=== PATIENT | male | born 1995 | race African-American/Black ===

== ENCOUNTER 2019-06-19 11:30 | Emergency (ER) | payer SELFPAY ==
[~2019-06-19] VITALS: Ht 180.3 cm; Wt 80.0 kg
[2019-06-19 12:17] VITALS: BP 130/73
[2019-06-19] MEDS ORDERED: DOCUSATE 100 MG/10 ML SOLUTION. AU ONE (12:45)
--- NOTE | 2019-06-19 13:08 | PHYS DOC ---
Past Medical History Past Medical History: Schizophrenia (GALEMIRIAM APRN) Past Surgical History: No Surgical History (GALEMIRIAM APRN) Smoking Status: Never Smoker Alcohol Use: None (MIRIAM BEASLEY DEBORA) Adult General Chief Complaint Chief Complaint: EARACHE/EAR PAIN HPI HPI Patient is a 24 year old male with history of schizophrenia presenting to the ED today complaining of right ear pain, symptoms began one month ago, patient rates the pain as 4 out of 10, described as sensation of fullness, denies any fever coughing or congestion. Reports he uses CBD. (MIRIAM BEASLEY DEBORA) Review of Systems Review of Systems Constitutional: Denies fever or chills [] HENT: Reports right ear pain. Denies nasal congestion or sore throat [] Respiratory: Denies cough or shortness of breath [] Cardiovascular: No additional information not addressed in HPI [] : Denies dysuria or hematuria [] Musculoskeletal: Denies back pain or joint pain [] Integument: Denies rash or skin lesions [] Neurologic: Denies headache, focal weakness or sensory changes [] All other systems were reviewed and found to be within normal limits, except as documented in this note. (GALEMIRIAM APRN) Current Medications Current Medications Current Medications Medications (Trade) Dose Ordered Sig/Dex Start Time Stop Time Status Last Admin Dose Admin Docusate Sodium (Colace Solution) 100 mg 1X ONCE 06/19/19 12:45 06/19/19 12:46 DC 06/19/19 12:45 100 MG (LEXIE VARELA DO) Allergies Allergies Allergies Coded Allergies Type Severity Reaction Last Updated Verified No Known Drug Allergies 06/19/19 No (LEXIE VARELA DO) Physical Exam Physical Exam Constitutional: Well developed, well nourished, no acute distress, non-toxic appearance. [] HENT: Normocephalic, atraumatic, bilateral external ears normal, oropharynx moist, no oral exudates, nose normal. [] Bilateral ear canals are impacted with cerumen, TM cannot be visualized. Eyes: PERRLA, EOMI, conjunctiva normal, no discharge. [] Neck: Normal range of motion, no tenderness, supple, no stridor. [] Cardiovascular:Heart rate regular rhythm, no murmur [] Lungs & Thorax: Bilateral breath sounds clear to auscultation [] Skin: Warm, dry, no erythema, no rash. [] Back: No tenderness, no CVA tenderness. [] Extremities: No tenderness, no cyanosis, no clubbing, ROM intact, no edema. [] Neurologic: Alert and oriented X 3, normal motor function, normal sensory function, no focal deficits noted. [] Psychologic: flat affect (MIRIAM BEASLEY APRN) Current Patient Data Vital Signs Vital Signs Date Time Temp Pulse Resp B/P (MAP) Pulse Ox O2 Delivery O2 Flow Rate FiO2 06/19/19 12:17 98.5 64 16 130/73 (92) 98 Room Air 98.5 (LEXIE VARELA DO) EKG EKG [] (MIRIAM BEASLEY APRN) Radiology/Procedures Radiology/Procedures [] (MIRIAM BEASLEY APRN) Course & Med Decision Making Course & Med Decision Making Pertinent Labs and Imaging studies reviewed. (See chart for details) This is a 24-year-old male patient with bilateral cerumen impaction. Patient opted to have cerumen removed at home, recommended Colace. F/u with ENT in 1-2 weeks (MIRIAM BEASLEY APRN) Dragon Disclaimer Dragon Disclaimer This electronic medical record was generated, in whole or in part, using a voice recognition dictation system. (MIRIAM BEASLEY APRN) Departure Departure Impression: Primary Impression: Cerumen impaction Disposition: 01 HOME, SELF-CARE Condition: STABLE Referrals: NO PCP (PCP) ANN LAU MD follow up in 1-2 weeks Patient Instructions: Cerumen Impaction Additional Instructions: Please put colace in the right ear while laying on the left side. Let it sit for 15 minutes then rinse with warm shower water. Repeat on the opposite ear. Follow up with ENT in 1 week Attending Signature Attending Signature I have reviewed the PA/PRICING/SIGNAGE TEAM MEMBER's note and plan of care. I was available for consultation as needed during the patient's visit in the emergency department. I agree with the clinical impression, plan, and disposition. (LEXIE VARELA DO) Problem Qualifiers Primary Impression: Cerumen impaction Laterality: bilateral Qualified Codes: H61.23 - Impacted cerumen, bilateral MIRIAM BEASLEY APRN Jun 19, 2019 13:08 LEXIE VARELA DO Jun 19, 2019 15:33
== END 2019-06-19 13:20 | disposition home or self-care (01) ==
LOC: ER 11:30
DX: H61.21 Impacted cerumen, right ear (principal); F20.9 Schizophrenia, unspecified
CPT/HCPCS: 99282

== ENCOUNTER 2020-07-24 11:47 | Emergency (ER) | payer BC ==
[~2020-07-24] VITALS: Ht 180.3 cm; Wt 81.0 kg
[2020-07-24 12:47] VITALS: BP 129/70
[2020-07-24 13:11] LABS: BILIRUBIN,URINE NEGATIVE (NEG); CLARITY,URINE CLEAR; COLOR,URINE YELLOW; NITRITE,URINE NEGATIVE (NEG); PH,URINE 8.5 (<5.0-8.0); PROTEIN,URINE NEGATIVE (NEG-TRACE)
--- NOTE | 2020-07-24 13:15 | ED.ADGEN ---
Past Medical History Past Medical History: Schizophrenia Past Surgical History: No Surgical History Smoking Status: Never Smoker Alcohol Use: None General Adult EDM: Chief Complaint: SEXUALLY TRANSMITTED DISEASE HPI: HPI: Patient is a 25 year old AA male who presents emergency department with request to be tested for sexually transmitted infections. Patient reports that his significant other was recently diagnosed with bacterial vaginosis. He denies any irregular penile discharge, dysuria, hematuria, increased urinary frequency, or difficulty voiding. Patient denies any abdominal pain, nausea, vomiting, diarrhea, fever, rash, body aches, or fatigue. Patient currently denies any pain. Review of Systems: Review of Systems: Complete ROS is negative unless otherwise noted in HPI. Allergies: Allergies: Allergies Coded Allergies Type Severity Reaction Last Updated Verified No Known Drug Allergies 06/19/19 No Physical Exam: PE: See Above Constitutional: Well developed, well nourished, no acute distress, non-toxic appearance. [] HENT: Normocephalic, atraumatic, bilateral external ears normal, nose normal. [] Eyes: PERRLA, EOMI, conjunctiva normal, no discharge. [] Neck: Normal range of motion, no stridor. [] Cardiovascular:Heart rate regular rhythm Lungs & Thorax: Respirations even and unlabored, no retractions, no respiratory distress Abdomen: soft, no tenderness Skin: Warm, dry, no erythema, no rash. [] Extremities: No cyanosis, ROM intact, no edema. [] Neurologic: Alert and oriented X 3, no focal deficits noted. [] Psychologic: Affect normal, judgement normal, mood normal. [] Current Patient Data: Labs: Laboratory Tests Test 07/24/20 12:50 Urine Collection Type Unknown Urine Color Yellow Urine Clarity Clear Urine pH 8.5 (<5.0-8.0) Urine Specific [place] 1.020 (1.000-1.030) Urine Protein Negative mg/dL (NEG-TRACE) Urine Glucose (UA) Negative mg/dL (NEG) Urine Ketones (Stick) Negative mg/dL (NEG) Urine Blood Negative (NEG) Urine Nitrite Negative (NEG) Urine Bilirubin Negative (NEG) Urine Urobilinogen Dipstick 1.0 mg/dL (0.2 mg/dL) Urine Leukocyte Esterase Negative (NEG) Urine RBC Rare /HPF (0-2) Urine WBC Occ /HPF (0-4) Urine Squamous Epithelial Cells Few /LPF Urine Bacteria 0 /HPF (0-FEW) Urine Mucus Slight /LPF EKG: EKG: [] Heart Score: C/O Chest Pain: No Risk Factors: Risk Factors: DM, Current or recent (<one month) smoker, HTN, HLP, family history of CAD, obesity. Risk Scores: Score 0 - 3: 2.5% MACE over next 6 weeks - Discharge Home Score 4 - 6: 20.3% MACE over next 6 weeks - Admit for Clinical Observation Score 7 - 10: 72.7% MACE over next 6 weeks - Early Invasive Strategies Radiology/Procedures: Radiology/Procedures: [] Course & Med Decision Making: Course & Med Decision Making Pertinent Labs and Imaging studies reviewed. (See chart for details) 25-year-old male presents emergency department with concerns of a possible sexually transmitted infection because his girlfriend was diagnosed with bacterial vaginosis. Patient denied any irregular penile discharge, dysuria, hematuria, or increased urinary frequency. His urinalysis was unremarkable, there is no bacteria in his urine. I advised the patient of his urinalysis results and recommend that he needs to follow-up with his primary care doctor for further evaluation. Return to the ER if symptoms worsen or fever develops. Patient verbalized an understanding of home care, medications, follow-up, and return to ED instructions and was in agreement with the plan of care. [] Dragon Disclaimer: Dragon Disclaimer: This electronic medical record was generated, in whole or in part, using a voice recognition dictation system. Departure Departure Impression: Primary Impression: Person with feared complaint in whom no diagnosis is made Disposition: 01 DC HOME SELF CARE/HOMELESS Condition: STABLE Referrals: NO PCP (PCP) Patient Instructions: Medical Screening Exam Additional Instructions: Follow-up with your primary care doctor for further evaluation and treatment of your health needs. Return to the ER if your symptoms worsen or fever develops. [facility] [address] [place] [address] [facility] [address] [place] [address] [place] [address] [facility] [address] [address] [facility] [address] [place] [address] [facility] [address] [place] [address] [address] [address] [place] [address] [facility] [address] [place] [address] [facility] [address] [place] [address] [facility] [address] [place] [address] BEHZAD KIRK APRN Jul 24, 2020 13:15
[2020-07-24 13:19] LABS: RBC,URINE RARE /HPF (0-2); WBC,URINE OCC /HPF (0-4)
[2020-07-24 13:20] LABS: BACTERIA,URINE 0 /HPF (0-FEW)
== END 2020-07-24 13:30 | disposition home or self-care (01) ==
LOC: ER 11:47
DX: A64 Unspecified sexually transmitted disease (principal); F20.9 Schizophrenia, unspecified
CPT/HCPCS: 81001; 87491; 87591; 99283

== ENCOUNTER 2021-04-04 08:02 | Emergency (ER) | payer SELFPAY ==
[~2021-04-04] VITALS: Ht 180.3 cm; Wt 91.0 kg
--- NOTE | 2021-04-04 09:07 | RAD ---
EXAM: 2 views left clavicle DATE: 04/04/2021 8:43 AM INDICATION: Reason: MEDIAL CLAVICLE PAIN/TENDER / Spl. Instructions: / History: . COMPARISON: No Prior FINDINGS/ IMPRESSION: No evidence of acute fracture or dislocation. AC joint is congruent. Electronically signed by: Ephraim Richard MD (04/04/2021 9:05 AM) [id number]
--- NOTE | 2021-04-04 09:16 | PHYS DOC ---
Past Medical History Past Medical History: Schizophrenia Past Surgical History: No Surgical History Smoking Status: Never Smoker Alcohol Use: None General Adult EDM: Chief Complaint: CLAVICLE INJURY HPI: HPI: Patient is a 26 year old male without pertinent past medical history who presents with left medial clavicle pain. States he was squatting with the bar over his shoulders on Wednesday and felt a strain over the clavicle where it meets the sternum. Denies any other injuries. Can still move his left arm with good range of motion. Has no pain radiating towards arm or elsewhere. Denies any trauma. Has not taken any [id number] medications for pain. Review of Systems: Review of Systems: Constitutional: Denies fever or chills. [] Eyes: Denies change in visual acuity. [] HENT: Denies nasal congestion or sore throat. [] Respiratory: Denies cough or shortness of breath. [] Cardiovascular: Denies chest pain or edema. [] GI: Denies abdominal pain, nausea, vomiting, bloody stools or diarrhea. [] : Denies dysuria. [] Musculoskeletal: Reports left clavicle discomfort Integument: Denies rash. [] Neurologic: Denies headache, focal weakness or sensory changes. [] Endocrine: Denies polyuria or polydipsia. [] Lymphatic: Denies swollen glands. [] Psychiatric: Denies depression or anxiety. [] Heart Score: C/O Chest Pain: No Allergies: Allergies: Allergies Coded Allergies Type Severity Reaction Last Updated Verified No Known Drug Allergies 06/19/19 No Physical Exam: PE: Constitutional: Well developed, well nourished, no acute distress, non-toxic appearance. [] HENT: Normocephalic, atraumatic, bilateral external ears normal, oropharynx moist, no oral exudates, nose normal. [] Eyes: PERRLA, EOMI, conjunctiva normal, no discharge. [] Neck: Normal range of motion, no tenderness, supple, no stridor. [] Cardiovascular:Heart rate regular rhythm, no murmur [] Lungs & Thorax: Bilateral breath sounds clear to auscultation [] Abdomen: Bowel sounds normal, soft, no tenderness, no masses, no pulsatile masses. [] Skin: Warm, dry, no erythema, no rash. [] Back: No tenderness, no CVA tenderness. [] Extremities: Left arm: Good range of motion of the shoulder, normal strength of the upper extremity, no deformity, bruising, or skin changes overlying the shoulder or the clavicle. Has tenderness only isolated over the medial clavicle where it meets the manubrium. Manubrial clavicular joint is stable without any motion. Radial and ulnar pulses 2+ in left arm. Neurologic: Alert and oriented X 3, normal motor function, normal sensory function, no focal deficits noted. [] Psychologic: Affect normal, judgement normal, mood normal. [] EKG: EKG: [] Radiology/Procedures: Radiology/Procedures: [] Impression: [facility] [address] [place], [place] [id number] IMAGING REPORT Signed PATIENT: ELY SIFUENTES ACCOUNT: [id number] : 1995 LOCATION: ER AGE: 26 SEX: M EXAM STATUS: REG ER ORD. PHYSICIAN: MEGAN MARTIN MD REASON: MEDIAL CLAVICLE PAIN/TENDER PROCEDURE: CLAVICLE LEFT EXAM: 2 views left clavicle DATE: 04/04/2021 8:43 AM INDICATION: Reason: MEDIAL CLAVICLE PAIN/TENDER / Spl. Instructions: / History: . COMPARISON: No Prior FINDINGS/ IMPRESSION: No evidence of acute fracture or dislocation. AC joint is congruent. Electronically signed by: Ephraim Richard MD (04/04/2021 9:05 AM) [id number] DICTATED and SIGNED BY: EPHRAIM RICHARD MD DATE: 04/04/21 [id number] 0 Course & Med Decision Making: Course & Med Decision Making Pertinent Labs and Imaging studies reviewed. (See chart for details) Patient a 26-year-old male who presents with clavicular discomfort starting after weight lifting with squats on Wednesday. Tenderness over the medial clavicle where it meets the manubrium. Instability to suggest a dislocation. Plain films negative. Likely a strain/sprain We will advise conservative management Tylenol, ibuprofen, rest. Dragon Disclaimer: Dragon Disclaimer: This electronic medical record was generated, in whole or in part, using a voice recognition dictation system. Departure Departure Impression: Primary Impression: Sternoclavicular joint strain Disposition: HOME / SELF CARE / HOMELESS Condition: IMPROVED Referrals: NO PCP (PCP) Additional Instructions: I believe you strained the joint between your clavicle and your sternum. This should improve with rest over time. For pain tylenol and ibuprofen are best used on a schedule. Please alternate between the two. -Tylenol 1000 mg every 6 hours (do not exceed 4000 mg in one day) -Ibuprofen 400 mg every 6 hours. Take with food. Do not take for more than 1 week. MEGAN MARTIN MD Apr 04, 2021 09:16
[2021-04-04 09:34] VITALS: BP 132/73
== END 2021-04-04 09:36 | disposition home or self-care (01) ==
LOC: ER 08:02
DX: S29.019A Strain of muscle and tendon of unspecified wall of thorax, initial encounter (principal); F20.9 Schizophrenia, unspecified; X58.XXXA Exposure to other specified factors, initial encounter; Y93.89 Activity, other specified; Y92.89 Other specified places as the place of occurrence of the external cause; Y99.8 Other external cause status
CPT/HCPCS: 73000; 99283

== ENCOUNTER 2021-09-01 18:47 | Emergency (ER) | payer SELFPAY ==
[~2021-09-01] VITALS: Ht 180.3 cm; Wt 88.2 kg
[2021-09-01] MEDS ORDERED: ACETAMINOPHEN 500 MG TABLET PO ONE (19:00)
--- NOTE | 2021-09-01 19:01 | PHYS DOC ---
Past Medical History Past Medical History: Schizophrenia Past Surgical History: No Surgical History Smoking Status: Never Smoker Alcohol Use: None General Adult EDM: Chief Complaint: FEVER HPI: HPI: Patient is a 26 year old male with history of schizophrenia presenting to the ED today complaining of a headache, fever, shortness of breath, symptoms for 2 days. He states "I have pneumonia" Review of Systems: Review of Systems: Constitutional: Reports fever Eyes: Denies change in visual acuity. [] HENT: Denies nasal congestion or sore throat. [] Respiratory: Reports shortness of breath Cardiovascular: Denies chest pain or edema. [] GI: Denies abdominal pain, nausea, vomiting, bloody stools or diarrhea. [] : Denies dysuria. [] Musculoskeletal: Denies back pain or joint pain. [] Integument: Denies rash. [] Neurologic: Reports headache, denies focal weakness or sensory changes. [] Psychiatric: Denies depression or anxiety. [] Heart Score: C/O Chest Pain: N/A Risk Factors: Risk Factors: DM, Current or recent (<one month) smoker, HTN, HLP, family history of CAD, obesity. Risk Scores: Score 0 - 3: 2.5% MACE over next 6 weeks - Discharge Home Score 4 - 6: 20.3% MACE over next 6 weeks - Admit for Clinical Observation Score 7 - 10: 72.7% MACE over next 6 weeks - Early Invasive Strategies Allergies: Allergies: Allergies Coded Allergies Type Severity Reaction Last Updated Verified No Known Drug Allergies 06/19/19 No Physical Exam: PE: Constitutional: Well developed, well nourished, no acute distress, non-toxic appearance. [] HENT: Normocephalic, atraumatic, bilateral external ears normal, oropharynx moist, no oral exudates, nose normal. [] Eyes: PERRLA, EOMI, conjunctiva normal, no discharge. [] Neck: Normal range of motion, no tenderness, supple, no stridor. [] Cardiovascular:Heart rate regular rhythm, no murmur [] Lungs & Thorax: Bilateral breath sounds clear to auscultation [] Abdomen: Bowel sounds normal, soft, no tenderness, no masses, no pulsatile masses. [] Skin: Warm, dry, no erythema, no rash. [] Back: No tenderness, no CVA tenderness. [] Extremities: No tenderness, no cyanosis, no clubbing, ROM intact, no edema. [] Neurologic: Alert and oriented X 3, normal motor function, normal sensory function, no focal deficits noted. [] Psychologic: Affect normal, judgement normal, mood normal. [] EKG: EKG: [] Radiology/Procedures: Radiology/Procedures: []PROCEDURE: PORTABLE CHEST 1V Single view chest dated 09/01/2021 7:11 PM: COMPARISON: None Clinical Indication: Fever. Findings: Single upright portable exam of the chest was performed. Heart size and med iastinal contours are within normal limits. Lungs are clear. No consolidation or pleural effusion. No pneumothorax. IMPRESSION: No acute radiographic abnormality. Electronically signed by: Lexie Brush MD (09/01/2021 7:11 PM) [facility] [place] DICTATED and SIGNED BY: LEXIE BRUSH MD DATE: 09/01/211910 Course & Med Decision Making: Course & Med Decision Making Pertinent Labs and Imaging studies reviewed. (See chart for details) This a 26-year-old male patient presenting to the ED today with complaints of fever, shortness of breath and a headache that began 2 days ago. Temperature in the ED 100.8, heart rate 75 BP 132/68 Chest x-ray interpreted by radiologist as negative for any acute findings, negative rapid influenza test, negative rapid COVID test. Discharge home, supportive care measures recommended. [place] Disclaimer: [place] Disclaimer: This electronic medical record was generated, in whole or in part, using a voice recognition dictation system. Departure Departure Impression: Primary Impression: Fever Qualified Codes: R50.9 - Fever, unspecified Additional Impression: Shortness of breath Disposition: 01 HOME / SELF CARE / HOMELESS Condition: STABLE Referrals: NO PCP (PCP) followup with your doctor in the course of this week Patient Instructions: Fever, Adult, [id number], Shortness of Breath, [id number] Additional Instructions: You were evaluated in the emergency room, your chest x-ray is negative for pneumonia, your rapid flu and COVID test are negative. We encourage you to push fluids, rest, maintain good hand hygiene, take Tylenol or Motrin for pain or fever. Use the inhaler prescribed as needed for shortness of breath. Please follow-up with your doctor in the next 7 days. Come back to the ED at any point symptoms. Scripts Ibuprofen (IBUPROFEN) 600 Mg Tablet 600 MG PO PRN Q6HRS PRN for FEVER > 100.3'F, #30 TAB Prov: MIRIAM BEASLEY APRN 09/01/21 Acetaminophen (TYLENOL) 325 Mg Tablet 1-2 TAB PO QID, #60 TAB 2 Refills Prov: MIRIAM BEASLEY APRN 09/01/21 MRIIAM BEASLEY APRN September 01, 2021 19:00
--- NOTE | 2021-09-01 19:13 | RAD ---
Single view chest dated 09/01/2021 7:11 PM: COMPARISON: None Clinical Indication: Fever. Findings: Single upright portable exam of the chest was performed. Heart size and mediastinal contours are with in normal limits. Lungs are clear. No consolidation or pleural effusion. No pneumothorax. IMPRESSION: No acute radiographic abnormality. Electronically signed by: Sunil Brush MD (09/01/2021 7:11 PM) K[facility]AN
[2021-09-01 19:36] LABS: INFLUENZA A PATIENT NEGATIVE (NEGATIVE); INFLUENZA B PATIENT NEGATIVE (NEGATIVE)
[2021-09-01] MEDS ORDERED: IBUP-1007 PO (19:42)
[2021-09-01] MEDS ORDERED: ACET325T9 PO (19:42)
== END 2021-09-01 19:48 | disposition home or self-care (01) ==
LOC: ER 18:47
DX: R50.9 Fever, unspecified (principal); R06.02 Shortness of breath; Z20.822 Contact with and (suspected) exposure to COVID-19
CPT/HCPCS: 71045; 87428; 99284